=== PATIENT | male | born 1980 | race Caucasian/White ===

== ENCOUNTER 2017-02-21 13:46 | Emergency (ER) | payer BC ==
[~2017-02-21] VITALS: Ht 177.8 cm; Wt 76.7 kg
[2017-02-21 14:52] LABS: HEMATOCRIT 42.3 % (38.0-50.0); MCH 30.4 PG (29.0-34.0); MCV 89.2 FL (86-99); MEAN PLAT.VOLUME 9.8 uM^3 (9.0-12.4); PLATELET COUNT 228 K/uL (156-360); RBC DIS.WIDTH-CV 11.9 % (11.8-14.6); RBC DIS.WIDTH-SD 38.3 % (39-53); RED BLOOD COUNT 4.74 M/uL (4.00-5.50); WHITE BLOOD COUNT 10.3 K/uL (4.1-10.2)
[2017-02-21 15:07] LABS: CHLORIDE 103 mEq/L (99-109); POTASSIUM 3.8 mEq/L (3.7-5.4); SODIUM 140 mEq/L (136-147)
[2017-02-21 15:08] LABS: GLUCOSE 107 mg/dL (70-99)
[2017-02-21 15:10] LABS: ANION GAP 11 MEQ/L (2-14)
[2017-02-21 15:12] LABS: GFR ESTIMATE (CALCULATED) > 59 mL/min/
[2017-02-21 15:13] LABS: UREA NITROGEN (BUN) 10 mg/dL (9-23)
[2017-02-21 18:02] LABS: ADD MIUA? NO; BILIRUBIN NEGATIVE; BLOOD NEGATIVE; COLOR STRAW ((YELLOW)); GLUCOSE (STRIP) NEGATIVE; KETONES 20; LEUKOCYTES NEGATIVE; NITRITE NEGATIVE; PROTEIN (STRIP) NEGATIVE; SPECIFIC GRAVITY 1.005 (1.000-1.030); UCUL ADDED? NO; UROBILINOGEN 0.2 MG/DL (0.2-1.0)
[2017-02-21] MEDS ORDERED: REGLAN5 MG PO (19:00)
[2017-02-21] MEDS ORDERED: AFRIN,GENASAL D15 ML BOTH NARES (19:00)
[2017-02-21] MEDS ORDERED: AUGMENTIN875 MG PO (19:00)
[2017-02-21] MEDS ORDERED: ANTIVERT25 MG PO (19:00)
[2017-02-21 19:34] VITALS: BP 112/66
== END 2017-02-21 19:35 | disposition home or self-care (01) ==
LOC: EME 13:46
DX: J32.9 Chronic sinusitis, unspecified (principal); R42 Dizziness and giddiness; Z87.442 Personal history of urinary calculi
CPT/HCPCS: 70486; 80048; 81003; 85027; 99281; 99285; J2405; J2765; J3360; J7030